=== PATIENT | male | born 1995 | race Caucasian/White ===

== ENCOUNTER 2018-06-23 17:12 | Emergency (ER) | payer BC ==
[2018-06-23 17:46] VITALS: BP 128/62
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
== END 2018-06-23 18:45 | disposition home or self-care (01) ==
LOC: UCCORT 17:12
DX: T24.302A Burn of third degree of unspecified site of left lower limb, except ankle and foot, initial encounter (principal); T31.0 Burns involving less than 10% of body surface; X19.XXXA Contact with other heat and hot substances, initial encounter; Y93.89 Activity, other specified; Y92.410 Unspecified street and highway as the place of occurrence of the external cause; Y99.0 Civilian activity done for income or pay
CPT/HCPCS: 16020; 99212; G0463